=== PATIENT | male | born 1980 | race Two or more races ===

== ENCOUNTER 2017-02-25 17:15 | Emergency (ER) | payer OTHER ==
[~2017-02-25] VITALS: Ht 177.8 cm; Wt 82.6 kg
[2017-02-25] MEDS ORDERED: IBUPROFEN 400 MG TABLET ONE (17:38)
[2017-02-25] MEDS ORDERED: ACETAMINOPHEN ES 500 MG TABLET ONE (17:38)
[2017-02-25 17:45] VITALS: BP 109/66
--- NOTE | 2017-02-25 17:45 | NUR ---
Patient discharged to home in stable condition. Written and verbal after care instructions given. Patient verbalizes understanding of instruction.
[2017-02-25] MEDS ORDERED: IBUPROFEN 400 MG TABLET PO ONE (18:00)
[2017-02-25] MEDS ORDERED: ACETAMINOPHEN ES 500 MG TABLET PO ONE (18:00)
== END 2017-02-25 17:46 | disposition home or self-care (01) ==
LOC: ER 17:22
DX: S39.012A Strain of muscle, fascia and tendon of lower back, initial encounter (principal); S16.1XXA Strain of muscle, fascia and tendon at neck level, initial encounter; V89.2XXA Person injured in unspecified motor-vehicle accident, traffic, initial encounter; Y93.89 Activity, other specified; Y92.413 State road as the place of occurrence of the external cause; Y99.8 Other external cause status
CPT/HCPCS: 99283; A4606; Z7610